=== PATIENT | female | born 1995 | race Caucasian/White ===

== ENCOUNTER 2018-04-08 08:20 | Emergency (ER) | payer BC, OTHER ==
[~2018-04-08] VITALS: Ht 177.8 cm; Wt 90.7 kg
--- OUTSIDE RECORDS SUMMARY | 2018-04-08 08:24 | XMS REPORT | CCD ---
Author Author ADRIANO MALONE Organization Unknown Address [address] [place], [place] [id number] Care Team Providers Care Belly Dancer Name Role Phone JENNIFER KUHN, SJ Christian Attphys SJ RODRIGUEZ MD Prisuethan Vital Signs Unknown or Not Available. Allergies Unknown or Not Available. Procedures Procedure Code Procedure Type Date HAND;MINIMUM 3VWS [id number] SNOMED CT 05/08/2015 History of Immunizations Immunization Code Date Hep B, adolescent or pediatric 08 1997 Problems Unknown or Not Available. Results Unknown or Not Available. Active Medications Unknown or Not Available. Medications Administered During Visit Unknown or Not Available. Encounters Encounter Diagnosis Diagnosis Code Start Date Contusion of hand [id number] 05/08/2015 Social History Smoking Status Code Start Date End Date Never smoker [id number] Patient Decision Aids Unknown or Not Available. Discharge Instructions You were admitted to [facility] on 05/08/2015 17:39 with a principal diagnosis of Contusion of left hand, initial encounter You were discharged from [facility] on 05/08/2015 19:06 Should you have any questions prior to discharge, please contact a member of your healthcare team. If you have left the hospital and have any questions, please contact your primary care physician. Chief Complaint and Reason For Visit Chief Complaint Date of Onset HAND INJURY Function Status Unknown or Not Available. Plan of Care Unknown or Not Available. Referral/Transition of Care Unknown or Not Available.
--- OUTSIDE RECORDS SUMMARY | 2018-04-08 08:25 | XMS REPORT ---
Author Author Landy Lepe [facility] Address [address] [place], [place] [id number] Care Team Providers Care Security Supervisor Name Role Phone Landy Lepe PCP Landy Lepe PreferredProvider Allergies and Adverse Reactions Name Reaction Notes NO KNOWN DRUG ALLERGIES Plan of Treatment Not available. Medications Name Start Date Expiration Date SIG Comments Medrol (Emilio) 4 mg oral tablets,dose pack 03/15/2014 03/30/2014 take as directed azithromycin 500 mg oral tablet 03/15/2014 03/22/2014 take 1 tablet (500 mg ) by oral route once daily x 7 days ProAir HFA 90 mcg/actuation inhalation HFA aerosol inhaler 03/15/20142014 inhale 2 puffs by inhalation route every 4 hours as needed for 7 days Zithromax 250 mg oral tablet 07/20/2016 07/25/2016 take 2 tablets (500 mg) by oral route once daily for 1 day then 1 tablet (250 mg) by oral route once daily for 4 days Zithromax Z-Emilio 250 mg oral tablet 10/24/2016 10/29/2016 take 2 tablets (500 mg ) by oral route once daily for 1 day then 1 tablet (250 mg) by oral route once daily for 4 days doxycycline hyclate 100 mg oral tablet 12/09/2016 01/06/2017 take 1 tablet ( 100 mg) by oral route every 12 hours for 14 days promethazine 25 mg oral tablet 06/06/2017 06/11/2017 take 1 tablet (25 mg) by oral route every 6 hours as needed for 5 days Vibramycin 100 mg oral capsule 11/09/2017 11/19/2017 1 capsule am and pm for 10 days Discontinued Name Start Date Discontinued Date SIG Comments amoxicillin 875 mg oral tablet 03/14/2017 05/08/2017 take 1 tablet (875 mg) by oral route every 12 hours for 10 days amoxicillin 875 mg oral tablet 05/08/2017 11/07/2017 take 1 tablet (875 mg) by oral route every 12 hours for 10 days Problem List Description Status Onset *No known medical problems Active Vital Signs Date Time BP-Sys(mm[Hg] BP-Briseida(mm[Hg]) HR(bpm) RR(rpm) Temp WT HT HC BMI BSA BMI Percentile O2 Sat(%) 11/07/2017 2:36:00 PM 128 mmHg 78 mmHg 92 bpm 16 rpm 98.8 F 189.375 lbs 71 in 26.4122 kg/m 2.0744 m 99 % 05/08/2017 1:17:00 PM 102 mmHg 60 mmHg 91 bpm 18 rpm 96.8 F 198.125 lbs 71 in 27.63 kg/m2 2.12 m2 98 % 03/14/2017 11:16:00 AM 112 mmHg 68 mmHg 104 bpm 18 rpm 97.4 F 205 lbs 71 in 28.5914 kg/m 2.1583 m 0 % 97 % 12/09/2016 3:02:00 PM 124 mmHg 64 mmHg 84 bpm 18 rpm 96.9 F 198.375 lbs 71 in 27.67 kg/m2 2.12 m2 0 % 98 % 10/24/2016 2:45:00 PM 122 mmHg 66 mmHg 98 bpm 18 rpm 99.2 F 209.375 lbs 71 in 29.2016 kg/m 2.1812 m 92 % 99 % 07/20/2016 4:09:00 PM 120 mmHg 80 mmHg 86 bpm 18 rpm 97.4 F 203.437 lbs 71 in 28.37 kg/m2 2.15 m2 90.8 % 99 % 03/15/2014 12:32:00 PM 122 mmHg 62 mmHg 81 bpm 18 rpm 99.3 F 160 lbs 71 in 22.3152 kg/m 1.9067 m 65.3 % 99 % Social History Name Description Comments denies alcohol use Tobacco Never smoker Caffeine Current every day History of Procedures Date Ordered Description Order Status 07/20/2016 12:00 AM THER/PROPH/DIAG INJ SC/IM Reviewed 07/20/2016 12:00 AM Decadron 4mg Injection Reviewed 07/20/2016 12:00 AM Depo-Medrol 40mg Injection Reviewed 12/09/2016 12:00 AM Tick Panel Reviewed 12/09/2016 12:00 AM COMPLETE CBC W/AUTO DIFF WBC Returned 12/09/2016 12:00 AM COMPREHEN METABOLIC PANEL Returned 12/09/2016 12:00 AM C-REACTIVE PROTEIN Returned 12/09/2016 12:00 AM X-RAY EXAM OF SHOULDER Reviewed 10/24/2016 12:00 AM THER/PROPH/DIAG INJ SC/IM Reviewed 10/24/2016 12:00 AM Decadron 4mg Injection Reviewed 10/24/2016 12:00 AM Depo-Medrol 40mg Injection Reviewed 03/14/2017 12:00 AM THER/PROPH/DIAG INJ SC/IM Reviewed 03/14/2017 12:00 AM Decadron 4mg Injection Reviewed 03/14/2017 12:00 AM Depo-Medrol 40mg Injection Reviewed 11/07/2017 12:00 AM COMPLETE CBC W/AUTO DIFF WBC Reviewed 11/07/2017 12:00 AM COMPREHEN METABOLIC PANEL Reviewed 11/07/2017 12:00 AM Tick Panel Reviewed Results Summary Date and Description Results 12/09/2016 3:37 PM Lyme IgG/IgM Ab 1.16 Lyme Disease Ab, Quant,IgM <0.80 IgG P93 Ab. Absent IgG P66 Ab. Present IgG P58 Ab. Absent IgG P45 Ab. Absent IgG P41 Ab. Present IgG P39 Ab. Absent IgG P30 Ab. Absent IgG P28 Ab. Absent IgG P23 Ab. Absent IgG P18 Ab. Absent Lyme IgG WB Interp. Negative IgM P41 Ab. Absent IgM P39 Ab. Absent IgM P23 Ab. Absent Lyme IgM WB Interp. Negative RMSF, IgG, EIA Negative [facility] Spotted Fever,IgM 0.50 E. chaffeensis (HME) IgGTiter Negative titerE. chaffeensis (HME) IgMTiter Negative 11/07/2017 3:00 PM WBC 9.3 RBC 4.44 HGB 14.2 HCT 40.9 MCV 92 MCH 32.0 MCHC 34.7 RDW SD 42 RDW CV 12.4 MPV 9.8 PLT 310 NRBC# 0.00 NRBC% 0.0 %NEUT 70.8 % LYMP 19.7 %MONO 7.5 %EOS 1.4 %BASO 0.4 #NEUT 6.59 #LYMP 1.84 #MONO 0.70 #EOS 0.13 #BASO 0.04 MANUAL DIFF NOT IND GLUCOSE 104 SODIUM 138 POTASSIUM 4.0 CHLORIDE 105 CO2 24 BUN 9 CREATININE 0.8 SGOT/AST 16 SGPT/ALT 13 ALK PHOS 64 TOTAL PROTEIN 7.1 ALBUMIN 4.4 TOTAL BILI 0.5 CALCIUM 9.8 AGE 22 GFR NonAA 91 GFR AA 110 eGFR 91 eGFR AA* >60 Lyme IgG/IgM Ab <0.91 Lyme Disease Ab, Quant, IgM <0.80 RMSF, IgG, EIA Negative [facility] Spotted Fever,IgM 0.44 E. chaffeensis (HME) IgGTiter Negative E. chaffeensis (HME) IgMTiter Negative History Of Immunizations Not available. 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 2:48PM Allergic asthma without complication Oct 24 2016 2:48PM Enlarged lymph nodes in armpit Dec 09 2016 3:04PM Headache Dec 09 2016 3:04PM Bitten or stung by nonvenomous insect and other nonvenomous arthropods, initial encounter Dec 09 2016 3:04PM Cough Mar 14 2017 11:18AM Acute pharyngitis due to other specified organisms Mar 14 2017 11:18AM Acute pansinusitis, recurrence not specified Mar 14 2017 11:18AM Acute pharyngitis, unspecified etiology May 08 2017 1:20PM Herpangina May 08 2017 1:20PM Other fatigue Nov 07 2017 2:38PM History of Lyme disease Nov 07 2017 2:38PM Arthralgia, unspecified joint Nov 07 2017 2:38PM Diarrhea, unspecified type Nov 07 2017 2:38PM Payers Insurance Name Company Name Plan Name Plan Number Policy Number Policy Group Number Start Date [facility] [id number] N/A History of Encounters Visit Date Visit Type Provider 11/07/2017 Office visit 11/07/2017 Office visit Landy Lepe PHARMACEUTICAL BOTANIST 05/08/2017 Office visit Landy Jonna Lepe PHARMACEUTICAL BOTANIST 03/14/2017 Office visit Landy Lepe PHARMACEUTICAL BOTANIST 12/09/2016 Office visit Jean Rodriguez PA-C 10/24/2016 Office visit Landy Lepe PHARMACEUTICAL BOTANIST 07/20/2016 Office visit Landy Lepe PHARMACEUTICAL BOTANIST 03/15/2014 Office visit Nae Jimenez PHARMACEUTICAL BOTANIST
--- OUTSIDE RECORDS SUMMARY | 2018-04-08 08:25 | XMS REPORT ---
Author Author Jean Rodriguez [facility] Address [address] [place], [place] [address] Care Team Providers Care Community Health Advisor Name Role Phone Jean Rodriguez PCP Unavailable Landy Lepe PreferredProvider [phone] Allergies and Adverse Reactions Name Reaction Notes NO KNOWN DRUG ALLERGIES Plan of Treatment Planned Activity Comments Planned Date Planned Time Plan/Goal CBC W/ AUTO DIFF (RFLX MAN DIFF IF IND). 12/09/2016 12:00 AM CMP 12/09/2016 12:00 AM CRP 12/09/2016 12:00 AM SHOULDER MINIMUM 2 VIEWS 12/09/2016 12:00 AM Medications Active Name Start Date Estimated Completion Date SIG Comments doxycycline hyclate 100 mg oral tablet 12/09/2016 01/06/2017 take 1 tablet ( 100 mg) by oral route every 12 hours for 14 days Name Start Date Expiration Date SIG Comments [...] oral route once daily for 4 days Problem List Description Status Onset *No known medical problems Active Vital Signs Date Time BP-Sys(mm[Hg] BP-Briseida(mm[Hg]) HR(bpm) RR(rpm) Temp WT HT HC BMI BSA BMI Percentile O2 Sat(%) 12/09/2016 3:02:00 PM 124 mmHg 64 mmHg [...] 07/20/2016 12:00 AM Depo-Medrol 40mg Injection Reviewed 10/24/2016 12:00 AM THER/PROPH/DIAG INJ SC/IM Reviewed 10/24/2016 12:00 AM Decadron 4mg Injection Reviewed 10/24/2016 12:00 AM Depo-Medrol 40mg Injection Reviewed Results Summary Not available. History Of Immunizations Not available. History of [...] arthropods, initial encounter Dec 09 2016 3:04PM Payers Insurance Name Company Name Plan Name Plan Number Policy Number Policy Group Number [id number] N/A History of Encounters Visit Date Visit Type Provider 12/09/2016 Office visit Jean Rodriguez PA-C 10/24/2016 Office visit Landy Lepe APRN 07/20/2016 Office visit Landy Lepe APRN 03/15/2014 Office visit Nae Jimenez APRN
--- OUTSIDE RECORDS SUMMARY | 2018-04-08 08:25 | XMS REPORT ---
Author Author Landy Lepe [facility] Address [address] [place], [place] [id number] Care Team Providers Care Director International Name Role Phone Landy Lepe PCP Landy [...] Depo-Medrol 40mg Injection Reviewed 11/07/2017 12:00 AM Tick Panel Reviewed 11/07/2017 12:00 AM COMPLETE CBC W/AUTO DIFF WBC Reviewed 11/07/2017 12:00 AM COMPREHEN METABOLIC PANEL Reviewed Results Summary Date and Description Results [...] WB Interp. Negative RMSF, IgG, EIA Negative [facility] Spotted Fever,IgM 0.50 E. chaffeensis (HME) [...] Quant, IgM <0.80 RMSF, IgG, EIA Negative [facility] Spotted Fever,IgM 0.44 E. chaffeensis (HME) [...] Policy Number Policy Group Number Start Date [facility] [id number] N/A History of Encounters Visit Date Visit Type Provider 11/07/2017 Office visit 11/07/2017 Office visit Landy Lepe FARM MECHANIC 05/08/2017 Office visit Landy Jonna Lepe FARM MECHANIC 03/14/2017 Office visit Landy Lepe FARM MECHANIC 12/09/2016 Office visit Jean Rodriguez PA-C 10/24/2016 Office visit Landy Lepe FARM MECHANIC 07/20/2016 Office visit Landy Lepe FARM MECHANIC 03/15/2014 Office visit Nae Jimenez FARM MECHANIC
--- OUTSIDE RECORDS SUMMARY | 2018-04-08 08:25 | XMS REPORT ---
Author Author Landy Lepe [facility] Address [address] [place], [place] [phone] Care Team Providers Care Corporate Banking Officer Name Role Phone Landy Lepe PCP Landy Lepe PreferredProvider Allergies and Adverse Reactions Name Reaction Notes NO KNOWN DRUG ALLERGIES Plan of Treatment Planned Activity Comments Planned Date Planned Time Plan/Goal Injection, Subcutaneous/IM 03/14/2017 12:00 AM Medications Active Name Start Date Estimated Completion Date SIG Comments amoxicillin 875 mg oral tablet 03/14/2017 take 1 tablet (875 mg) by oral route every 12 hours for 10 days Name Start Date Expiration Date SIG [...] route every 12 hours for 14 days Problem List Description Status Onset *No known medical problems Active Vital Signs Date Time BP-Sys(mm[Hg] BP-Briseida(mm[Hg]) HR(bpm) RR(rpm) Temp WT HT HC BMI BSA BMI Percentile O2 Sat(%) 03/14/2017 11:16:00 AM 112 mmHg 68 mmHg 104 bpm 18 rpm 97.4 F 205 lbs 71 in 28.59 kg/m2 2.16 m2 0 % 97 % 12/09/2016 3:02:00 PM 124 mmHg 64 mmHg 84 bpm 18 rpm 96.9 F 198.375 lbs 71 in 27.6674 kg/m 2.1231 m 0 % 98 % 10/24/2016 2:45:00 PM 122 mmHg 66 mmHg 98 bpm 18 rpm 99.2 F 209.375 lbs 71 in 29.20 kg/m2 2.18 m2 92 % 99 % 07/20/2016 4:09:00 PM 120 mmHg 80 mmHg 86 bpm 18 rpm 97.4 F 203.437 lbs 71 in 28.3735 kg/m 2.15 m 90.8 % 99 % 03/15/2014 12:32:00 PM 122 mmHg 62 mmHg 81 bpm 18 rpm 99.3 F 160 lbs 71 in 22.32 kg/m2 1.91 m2 65.3 % 99 % Social History Name [...] AM Depo-Medrol 40mg Injection Reviewed Results Summary Date and Description Results [...] WB Interp. Negative RMSF, IgG, EIA Negative [facility] Spotted Fever,IgM 0.50 E. chaffeensis (HME) IgGTiter Negative titerE. chaffeensis (HME) IgMTiter Negative History Of Immunizations [...] recurrence not specified Mar 14 2017 11:18AM Payers Insurance Name Company Name Plan Name Plan Number Policy Number Policy Group Number Start Date [facility] [id number] N/A History of Encounters Visit Date Visit Type Provider 03/14/2017 Office visit Landy Lepe LIGHTING SPECIALIST 12/09/2016 Office visit Jean Rodriguez PA-C 10/24/2016 Office visit Landy Lepe LIGHTING SPECIALIST 07/20/2016 Office visit Landy Lepe LIGHTING SPECIALIST 03/15/2014 Office visit Nae Jimenez LIGHTING SPECIALIST
--- OUTSIDE RECORDS SUMMARY | 2018-04-08 08:25 | XMS REPORT ---
Author Author Jean Rodriguez [facility] Address [address] [place], [place] [phone] Care Team Providers Care Crew Leader Gluing Name Role Phone Jean Rodriguez PCP Unavailable ArlenevladlianetLandy PreferredProvider [phone] Allergies and Adverse Reactions Name Reaction Notes NO KNOWN DRUG ALLERGIES Plan of Treatment Not available. Medications Active Name Start Date Estimated Completion [...] Depo-Medrol 40mg Injection Reviewed 12/09/2016 12:00 AM COMPLETE CBC W/AUTO [...] Policy Number Policy Group Number [id number] N/A History of Encounters Visit Date Visit Type Provider 12/09/2016 Office visit Jean Rodriguez PA-C 10/24/2016 Office visit Landy Lepe APRN 07/20/2016 Office visit Landy Lepe APRN 03/15/2014 Office visit Nae Jimenez APRN
--- OUTSIDE RECORDS SUMMARY | 2018-04-08 08:26 | XMS REPORT ---
Author Author Landy Lepe [facility] Address [address] [place], [place] [phone] Care Team Providers Care Eye Care Professional Name Role Phone Landy Lepe PCP [phone] Landy Lepe PreferredProvider [phone] Allergies and Adverse Reactions Name Reaction Notes NO KNOWN DRUG ALLERGIES Plan of Treatment Planned Activity Comments Planned Date Planned Time Plan/Goal Injection, Subcutaneous/IM 07/20/2016 12:00 AM Medications Active Name Start Date Estimated Completion Date SIG Comments Zithromax 250 mg oral tablet 07/20/2016 07/25/2016 take 2 tablets (500 mg) by oral route once daily for 1 day then 1 tablet (250 mg) by oral route once daily for 4 days Name Start Date Expiration Date SIG [...] 4 hours as needed for 7 days Problem List Description Status Onset *No known medical problems Active Vital Signs Date Time BP-Sys(mm[Hg] BP-Briseida(mm[Hg]) HR(bpm) RR(rpm) Temp WT HT HC BMI BSA BMI Percentile O2 Sat(%) 07/20/2016 4:09:00 PM 120 mmHg 80 mmHg [...] Caffeine Current every day History of Procedures Not available. Results Summary Not available. History Of Immunizations [...] both eustachian tubes Jul 20 2016 4:13PM Payers Insurance Name Company Name Plan Name Plan Number Policy Number Policy Group Number Start Date [facility] [id number] N/A History of Encounters Visit Date Visit Type Provider 07/20/2016 Office visit Landy Lepe APRN 03/15/2014 Office visit Nae Jimenez APRN
--- OUTSIDE RECORDS SUMMARY | 2018-04-08 08:26 | XMS REPORT ---
Author Author Jean Rodriguez [facility] Address [address] [place], [place] [phone] Care Team Providers Care Equipment Services Associate Name Role Phone Jean Rodriguez PCP Unavailable ArlenevladLandy martinierine PreferredProvider [phone] Allergies and Adverse Reactions Name Reaction Notes NO KNOWN DRUG ALLERGIES Plan of Treatment Planned Activity Comments Planned Date Planned Time Plan/Goal SHOULDER MINIMUM 2 VIEWS 12/09/2016 12:00 AM [...] 10/24/2016 12:00 AM Depo-Medrol 40mg Injection Reviewed 12/09/2016 12:00 AM COMPLETE CBC W/AUTO DIFF WBC Returned 12/09/2016 12:00 AM COMPREHEN METABOLIC PANEL Returned 12/09/2016 12:00 AM C-REACTIVE PROTEIN Returned Results Summary Not available. History Of Immunizations [...] Policy Number Policy Group Number [facility] [id number] N/A History of Encounters Visit Date Visit Type Provider 12/09/2016 Office visit Jean Rodriguez PA-C 10/24/2016 Office visit Landy Lepe APRN 07/20/2016 Office visit Landy Lepe APRN 03/15/2014 Office visit Nae Jimenez APRN
--- OUTSIDE RECORDS SUMMARY | 2018-04-08 08:26 | XMS REPORT ---
Author Author Landy Lepe [facility] Address [address] [place], [place] [phone] Care Team Providers Care Business Division Chair Name Role Phone Landy Lepe PCP Landy Lepe PreferredProvider Allergies and Adverse Reactions Name Reaction Notes NO KNOWN DRUG ALLERGIES Plan of Treatment Not available. Medications Active Name Start Date Estimated Completion Date SIG Comments amoxicillin 875 mg oral tablet 05/08/2017 take 1 tablet (875 mg) by oral route every 12 hours for 10 days promethazine 25 mg oral tablet 06/06/2017 06/11/2017 take 1 tablet (25 mg) by oral route every 6 hours as needed for 5 days Name Start Date Expiration Date SIG [...] route every 12 hours for 14 days Discontinued Name Start Date Discontinued Date SIG Comments amoxicillin 875 mg oral tablet 03/14/2017 05/08/2017 take 1 tablet (875 mg) by oral route every 12 hours for 10 days Problem List Description Status Onset *No known medical problems Active Vital Signs Date Time BP-Sys(mm[Hg] BP-Briseida(mm[Hg]) HR(bpm) RR(rpm) Temp WT HT HC BMI BSA BMI Percentile O2 Sat(%) 05/08/2017 1:17:00 PM 102 mmHg 60 mmHg [...] 03/14/2017 12:00 AM Depo-Medrol 40mg Injection Reviewed Results [...] WB Interp. Negative RMSF, IgG, EIA Negative [facility] Spotted Fever,IgM 0.50 E. chaffeensis (HME) [...] 2017 1:20PM Herpangina May 08 2017 1:20PM Payers Insurance Name Company Name Plan Name Plan Number Policy Number Policy Group Number [facility] [id number] N/A History of Encounters Visit Date Visit Type Provider 05/08/2017 Office visit Landy Lepe APRN 03/14/2017 Office visit Landy Lepe APRN 12/09/2016 Office visit eJan Rodriguez PA-C 10/24/2016 Office visit Landy Lepe APRN 07/20/2016 Office visit Landy Lepe APRN 03/15/2014 Office visit Nae Jimenez APRN
--- OUTSIDE RECORDS SUMMARY | 2018-04-08 08:27 | XMS REPORT | Continuity of Care Document ---
Author Author [facility] Organization [facility] Address Unknown Phone Unavailable Allergies There is no data. Medications There is no data. Problems There is no data. Procedures There is no data. Results Test Result Range LymeAb(IgG/M)+HME(IgG/M)+RM... - 12/09/16 15:37 RMSF, IgG, EIA Negative Negative [facility] Spotted Fever, IgM 0.50 index 0.00-0.89 Lyme IgG/IgM Ab 1.16 ISR 0.00-0.90 Lyme Disease Ab, Quant, IgM <0.80 index 0.00-0.79 E. chaffeensis (HME) IgG Titer Negative Neg:<1:64 E. chaffeensis (HME) IgM Titer Negative Neg:<1:20 Lyme, Western Blot, Serum - 12/09/16 15:37 IgG P93 Ab. Absent IgG P66 Ab. Present IgG P58 Ab. Absent IgG P45 Ab. Absent IgG P41 Ab. Present IgG P39 Ab. Absent IgG P30 Ab. Absent IgG P28 Ab. Absent IgG P23 Ab. Absent IgG P18 Ab. Absent Lyme IgG WB Interp. Negative IgM P41 Ab. Absent IgM P39 Ab. Absent IgM P23 Ab. Absent Lyme IgM WB Interp. Negative Encounters ACCT No. Visit Date/Time Discharge Status Pt. Type Provider Facility Loc./Unit Complaint [id number] 05/08/2017 14:14:45 05/08/2017 23:59:59 CLS Outpatient Cristopher Lepe [id number] 03/14/2017 12:06:58 03/14/2017 23:59:59 CLS Outpatient Cristopher Lepe [id number] 12/09/2016 15:55:58 12/09/2016 23:59:59 CLS Outpatient Jean Rodriguez [id number] 10/24/2016 15:25:46 10/24/2016 23:59:59 CLS Outpatient Cristopher Lepe [id number] 07/20/2016 17:04:40 07/20/2016 23:59:59 CLS Outpatient Cristopher Lepe [id number] 03/15/2014 13:25:56 03/15/2014 23:59:59 CLS Outpatient Nae Jimenez [id number] 12/16/2016 13:06:00 Document Registration
--- OUTSIDE RECORDS SUMMARY | 2018-04-08 08:27 | XMS REPORT ---
Author Author Landy Lepe [facility] Address [address] [place], [place] [phone] Care Team Providers Care Photograph Inspector Name Role Phone Landy Lepe PCP Lanyd Lepe PreferredProvider Allergies and Adverse Reactions Name [...] 6 hours as needed for 5 days Discontinued Name Start Date Discontinued Date [...] rpm 96.8 F 198.125 lbs 71 in 27.6325 kg/m 2.1218 m 98 % 03/14/2017 11:16:00 AM 112 mmHg [...] WB Interp. Negative RMSF, IgG, EIA Negative [facility] Spotted Fever,IgM 0.50 E. chaffeensis (HME) [...] Policy Number Policy Group Number [id number] N/A History of Encounters Visit Date Visit Type Provider 05/08/2017 Office visit Landy Lepe APRN 03/14/2017 Office visit Landy Lepe APRN 12/09/2016 Office visit Jean Rodriguez PA-C 10/24/2016 Office visit Landy Lepe APRN 07/20/2016 Office visit Landy Lepe APRN 03/15/2014 Office visit Nae Jimenez APRN
[2018-04-08] MEDS ORDERED: NS IV 1000 ML 1,000 ML IV ONE (09:01)
--- NOTE | 2018-04-08 09:06 | ED Abdominal Pain ---
General Chief Complaint: Abdominal/GI Problems Stated Complaint: BACK PAIN Nursing Triage Note: pt abmulated to room 10 with complaint of left sided back pain that radiates to her abd. pt states she woke up two hours ago in severe pain. Sepsis Screen: No Definite Risk Source of Information: Patient Exam Limitations: No Limitations History of Present Illness Date Seen by Provider: Apr 08, 2018 Time Seen by Provider: 08:57 Initial Comments This 23-year-old young lady presents to emergency room with fairly sudden onset of left lower back, flank, and left lower quadrant pain that woke her around 07: 00. This was associated with vomiting. Pain has been constant since then. She denies or sexual activity. She denies any urinary changes. She has no history of renal stones. Allergies and Home Medications Allergies Coded Allergies: No Known Drug Allergies (Unverified , 04/08/18) Home Medications No Active Prescriptions or Reported Meds Patient Home Medication List Home Medication List Reviewed: Yes Review of Systems Review of Systems Constitutional: no symptoms reported EENTM: No Symptoms Reported Respiratory: No Symptoms Reported Cardiovascular: No Symptoms Reported Gastrointestinal: See HPI Genitourinary: No Symptoms Reported Musculoskeletal: no symptoms reported Skin: no symptoms reported Psychiatric/Neurological: No Symptoms Reported Endocrine: No Symptoms Reported Hematologic/Lymphatic: No Symptoms Reported Past Sppqidb-Lezprm-Xicqll Hx Past Med/Social Hx: Reviewed and Corrections made Patient Social History Alcohol Use: Denies Use Recreational Drug Use: No Smoking Status: Never a Smoker Recent Foreign Travel: No Contact w/Someone Who Travel: No Recent Infectious Disease Expo: No Recent Hopitalizations: No Immunizations Up To Date Tetanus Booster (TDap): Unknown PED Vaccines UTD: Yes Seasonal Allergies Seasonal Allergies: No Past Medical History Surgeries: No Respiratory: No Cardiac: No Neurological: No : No Reproductive Disorders: No Genitourinary: No Gastrointestinal: No Musculoskeletal: No Endocrine: No HEENT: No Cancer: No Psychosocial: No Integumentary: No Blood Disorders: No Physical Exam Vital Signs Vital Signs - First Documented 04/08/18 08:30 Temp 96.5 Pulse 77 Resp 20 B/P (MAP) 120/86 (97) Pulse Ox 98 O2 Delivery Room Air Capillary Refill : Less Than 3 Seconds Height/Weight/BMI Height: 5'10.00" Weight: 200lbs. oz. 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, no motor/sensory deficits, alert, normal mood/affect, oriented x 3 Skin: normal color, warm/dry Progress/Results/Core Measures Results/Orders Lab Results Laboratory Tests Test 04/08/18 08:37 04/08/18 09:06 Range/Units White Blood Count 7.6 4.3-11.0 10^3/uL Red Blood Count 4.38 4.35-5.85 10^6/uL Hemoglobin 13.8 11.5-16.0 G/DL Hematocrit 39 35-52 % Mean Corpuscular Volume 89 80-99 FL Mean Corpuscular Hemoglobin 32 25-34 PG Mean Corpuscular Hemoglobin Concent 35 32-36 G/DL Red Cell Distribution Width 12.7 10.0-14.5 % Platelet Count 326 130-400 10^3/uL Mean Platelet Volume 9.3 7.4-10.4 FL Neutrophils (%) (Auto) 61 42-75 % Lymphocytes (%) (Auto) 30 12-44 % Monocytes (%) (Auto) 8 0-12 % Eosinophils (%) (Auto) 0 0-10 % Basophils (%) (Auto) 1 0-10 % Neutrophils # (Auto) 4.6 1.8-7.8 X 10^3 Lymphocytes # (Auto) 2.3 1.0-4.0 X 10^3 Monocytes # (Auto) 0.6 0.0-1.0 X 10^3 Eosinophils # (Auto) 0.0 0.0-0.3 10^3/uL Basophils # (Auto) 0.0 0.0-0.1 10^3/uL Sodium Level 141 135-145 MMOL/L Potassium Level 3.3 L 3.6-5.0 MMOL/L Chloride Level 107 98-107 MMOL/L Carbon Dioxide Level 21 21-32 MMOL/L Anion Gap 13 5-14 MMOL/L Blood Urea Nitrogen 10 7-18 MG/DL Creatinine 1.07 0.60-1.30 MG/DL Estimat Glomerular Filtration Rate > 60 BUN/Creatinine Ratio 9 Glucose Level 104 70-105 MG/DL Calcium Level 9.4 8.5-10.1 MG/DL Corrected Calcium 9.0 8.5-10.1 MG/DL Total Bilirubin 0.6 0.1-1.0 MG/DL Aspartate Amino Transf (AST/SGOT) 17 5-34 U/L Alanine Aminotransferase (ALT/SGPT) 13 0-55 U/L Alkaline Phosphatase 58 40-136 U/L Total Protein 7.5 6.4-8.2 GM/DL Albumin 4.5 3.2-4.5 GM/DL Lipase 27 8-78 U/L Serum Test, Qualitative NEGATIVE NEGATIVE Urine Color YELLOW Urine Clarity CLEAR Urine pH 6 5-9 Urine Specific [place] 1.025 H 1.016-1.022 Urine Protein 2+ H NEGATIVE Urine Glucose (UA) NEGATIVE NEGATIVE Urine Ketones NEGATIVE NEGATIVE Urine Nitrite NEGATIVE NEGATIVE Urine Bilirubin NEGATIVE NEGATIVE Urine Urobilinogen 1 NORMAL MG/DL Urine Leukocyte Esterase 2+ H NEGATIVE Urine RBC (Auto) 4+ H NEGATIVE Urine RBC 25-50 H /HPF Urine WBC 2-5 /HPF Urine Squamous Epithelial Cells 5-10 /HPF Urine Crystals PRESENT H /LPF Urine Amorphous Sediment FEW [place] URATES H /LPF Urine Bacteria FEW H /HPF Urine Casts NONE /LPF Urine Mucus SMALL H /LPF Urine Culture Indicated YES My Orders Orders - LETTY OLIVIER MD Ua Culture If Indicated (04/08/18 08:57) Cbc With Automated Diff (04/08/18 09:01) Comprehensive Metabolic Panel (04/08/18 09:01) Hcg,Qualitative Serum (04/08/18 09:01) Lipase (04/08/18 09:01) Saline Lock/Iv-Start (04/08/18 09:01) Ns Iv 1000 Ml (Sodium Chloride 0.9%) (04/08/18 09:01) Ketorolac Injection (Toradol Injection) (04/08/18 09:15) Ondansetron Injection (Zofran Injectio (04/08/18 09:15) Urine Culture (04/08/18 09:06) Fentanyl Injection (Sublimaze Injection (04/08/18 09:45) Ct Abd/Pelvis Wo(Kidney Stone) (04/08/18 09:31) Oxycodone/Apap 5/325mg Tablet (Percocet (04/08/18 10:15) Abdomen/Kub 1view (04/08/18 10:29) Medications Given in ED Current Medications Medications Dose Ordered Sig/Franki Route Start Time Stop Time Status Last Admin Dose Admin Fentanyl Citrate 75 mcg ONCE ONCE IVP 04/08/18 09:45 04/08/18 09:46 DC 04/08/18 09:36 75 MCG Ketorolac Tromethamine 15 mg ONCE ONCE IVP 04/08/18 09:15 04/08/18 09:16 DC 04/08/18 09:16 15 MG Ondansetron HCl 8 mg ONCE ONCE IVP 04/08/18 09:15 04/08/18 09:16 DC 04/08/18 09:16 8 MG Oxycodone/ Acetaminophen 1 tab ONCE ONCE PO 04/08/18 10:15 04/08/18 10:16 DC 04/08/18 10:23 1 TAB Sodium Chloride 1,000 ml @ 0 mls/hr Q0M ONCE IV 04/08/18 09:01 04/08/18 09:04 DC 04/08/18 09:16 1,000 MLS/HR Vital Signs/I&O 04/08/18 08:30 Temp 96.5 Pulse 77 Resp 20 B/P (MAP) 120/86 (97) Pulse Ox 98 O2 Delivery Room Air Blood Pressure Mean: 97 Progress Progress Note : Time: 09:06 Progress Note Patient seen and examined. Labs and UA pending. Toradol and Zofran ordered along with IV fluids. Departure Impression Primary Impression: Left ureteral calculus Additional Impressions: Hydronephrosis, left Nausea and vomiting Qualified Codes: R11.2 - Nausea with vomiting, unspecified Disposition: 01 HOME, SELF-CARE Condition: Improved Departure-Patient Inst. Decision time for Depature: 10:33 Referrals: NO,LOCAL PHYSICIAN (PCP/Family) Primary Care Physician Patient Instructions: Kidney Stones in Adults Add. Discharge Instructions: Drink plenty of clear liquids. Use Zofran (ondansetron) as prescribed for nausea and vomiting. You may take ibuprofen up to 600 mg every 6 hours as needed for pain. Add Percocet as prescribed for pain not controlled by ibuprofen. Strain your urine and bring any stones collected to your follow-up appointment. Follow-up with your primary care provider, [facility], or a urologist of choice as soon as possible. Return to the emergency room if you have worsening symptoms. There was also an incidental abnormality of the ovaries noted on your CT scan. This should be followed with an outpatient ultrasound. Please address this with your provider in your follow-up appointment. Use your antibiotics as prescribed to prevent infection related to this kidney stone. All discharge instructions reviewed with patient and/or family. Voiced understanding. Scripts Cephalexin (Keflex) 500 Mg Capsule 500 MG PO BID, #10 CAP Prov: LETTY OLIVIER MD 04/08/18 Ondansetron (Ondansetron Odt) 4 Mg Tab.rapdis 4 MG SL Q4H PRN for NAUSEA/VOMITING, #10 TAB Prov: LETTY OLIVIER MD 04/08/18 Oxycodone HCl/Acetaminophen (Percocet 5-325 mg Tablet) 1 Each Tablet 1 EACH PO Q4H PRN for PAIN-MODERATE MDD 6, #10 TAB Prov: LETTY OLIVIER MD 04/08/18 Copy Copies To 1: PAUL KEEN MD, JOSHUA T MD Apr 08, 2018 09:06
[2018-04-08 09:10] LABS: BASOPHILS % (AUTO) 1 % (0-10); EOSINOPHILS % (AUTO) 0 % (0-10); HEMATOCRIT 39 % (35-52); HEMOGLOBIN 13.8 G/DL (11.5-16.0); LYMPHOCYTES # (AUTO) 2.3 X 10^3 (1.0-4.0); LYMPHOCYTES % (AUTO) 30 % (12-44); MEAN CORPUSCULAR HEMOGLOBIN 32 PG (25-34); MEAN CORPUSCULAR HGB CONC 35 G/DL (32-36); MEAN CORPUSCULAR VOLUME 89 FL (80-99); MEAN PLATELET VOLUME 9.3 FL (7.4-10.4); MONOCYTES # (AUTO) 0.6 X 10^3 (0.0-1.0); MONOCYTES % (AUTO) 8 % (0-12); NEUTROPHILS # (AUTO) 4.6 X 10^3 (1.8-7.8); NEUTROPHILS % (AUTO) 61 % (42-75); PLATELET COUNT 326 10^3/uL (130-400); RED BLOOD COUNT 4.38 10^6/uL (4.35-5.85); RED CELL DISTRIBUTION WIDTH 12.7 % (10.0-14.5); WHITE BLOOD COUNT 7.6 10^3/uL (4.3-11.0)
[2018-04-08 09:14] LABS: BILIRUBIN,URINE NEGATIVE (NEGATIVE); CLARITY,URINE CLEAR; COLOR,URINE YELLOW; GLUCOSE, URINE (UA) NEGATIVE (NEGATIVE); KETONES,URINE NEGATIVE (NEGATIVE); LEUKOCYTE ESTERASE ,URINE 2+ (NEGATIVE); NITRITE,URINE NEGATIVE (NEGATIVE); PH,URINE 6 (5-9); PROTEIN,URINE 2+ (NEGATIVE); UROBILINOGEN,URINE 1 MG/DL (NORMAL)
[2018-04-08] MEDS ORDERED: KETOROLAC 30 MG/ML VIAL IVP ONE (09:15)
[2018-04-08] MEDS ORDERED: ONDANSETRON 4 MG/2 ML (SDV) Z0FRAN IVP ONE (09:15)
[2018-04-08 09:24] LABS: ALANINE AMINOTRANSFERASE 13 U/L (0-55); ALBUMIN 4.5 GM/DL (3.2-4.5); ALKALINE PHOSPHATASE 58 U/L (40-136); BILIRUBIN,TOTAL 0.6 MG/DL (0.1-1.0); BUN/CREATININE RATIO 9; CALCIUM 9.4 MG/DL (8.5-10.1); CARBON DIOXIDE 21 MMOL/L (21-32); CHLORIDE 107 MMOL/L (98-107); CREATININE SERUM 1.07 MG/DL (0.60-1.30); GFR ESTIMATED > 60; GLUCOSE 104 MG/DL (70-105); LIPASE 27 U/L (8-78); POTASSIUM 3.3 MMOL/L (3.6-5.0); SODIUM 141 MMOL/L (135-145); TOTAL PROTEIN 7.5 GM/DL (6.4-8.2)
[2018-04-08 09:25] LABS: BACTERIA,URINE FEW /HPF; RBC,URINE 25-50 /HPF
[2018-04-08 09:26] LABS: AMORPHOUS SEDIMENT,UR FEW AMOR URATES /LPF
[2018-04-08] MEDS ORDERED: fentaNYL INJECTION 100 MCG/2 ML AMP IVP ONE (09:45)
[2018-04-08] MEDS ORDERED: oxyCODONE/APAP 5/325MG (PERCOCET 5) TABLET PO ONE (10:15)
--- NOTE | 2018-04-08 10:17 | Diagnostic Imaging Report ---
PROCEDURE: CT urinary tract, rule out kidney stone. TECHNIQUE: Multiple contiguous axial images were obtained through the abdomen and pelvis without the use of intravenous contrast. INDICATION: Pain radiating into the abdomen, left-sided back pain, severe pain in the last 2 hours. EXAMINATION: CT abdomen pelvis without contrast 04/08/2018. COMPARISON: None. FINDINGS: Lung bases unremarkable. In the abdomen and the pelvis there is prominence of the left ureter along its entire course. In the distal ureter proximal to the UVJ there is a hyperdensity which measures approximately 5 mm in size consistent with an obstructive stone. Secondary mild hydronephrosis is noted. Mild fat stranding about the left kidney is seen. Punctate stones suspected nonobstructive in nature in the left kidney as well. Right kidney is unremarkable. No ureteral stones on the right. There are cystic changes in the adnexa bilaterally. Left ovary more pronounced on the left with likely the left ovary diffusely heterogeneous in nature containing hyperdensities. These could represent calcifications and are better evaluated sonographically on a nonemergent basis. Free fluid in the pelvis is noted likely physiologic or due to recently ruptured cyst. Appendix unremarkable. No inflammation seen about the remaining bowel loops. Remaining abdominal viscera limited due to lack of contrast but no acute abnormality appreciated. The osseous structures demonstrate no acute findings. There is a tiny punctate 1-2 mm hyperdensity in the left hemipelvis possibly within the urinary bladder recently passed stone versus a nonspecific calcification in the pelvis and of no significance. IMPRESSION: 1. 5 mm stone in distal left ureter proximal to the UVJ is causing secondary left hydroureteronephrosis and diffuse secondary fat stranding. Punctate nonobstructive stone left kidney also noted. 2. Minimal free fluid in pelvis most likely physiologic. Findings in the ovaries nonspecific left worse than right likely due peripherally calcified lesions dermoid not excluded. Sonographic evaluation non emergently unless there is pelvic pain would be recommended. Dictated by: Dictated on workstation # [id number]
[2018-04-08] MEDS ORDERED: ONDA4TAB11 SL (10:38)
[2018-04-08] MEDS ORDERED: CEPH-507 PO (10:38)
[2018-04-08] MEDS ORDERED: OXYC1TAB87 PO (10:38)
[2018-04-08 11:00] VITALS: BP 120/86
--- NOTE | 2018-04-08 11:35 | Diagnostic Imaging Report ---
INDICATION: Left flank pain. No history of stones. EXAMINATION: Abdomen dated 04/08/2018 FINDINGS: Mild scoliotic deformity of the spine is noted. There is a nonobstructive bowel gas pattern with air and stool throughout the colon to the rectosigmoid. There is no free air or dilated loops of bowel. The previously described hyperdensities noted about the expected course of the left distal ureter is noted. This was likely a stone is noted on the recent CT. The smaller density towards left of midline in the lower pelvis not appreciated given small size. IMPRESSION: 1. Small density in the left hemipelvis corresponding to calcification described on prior CT. Nonobstructive bowel gas pattern. Dictated by: Dictated on workstation # [id number]
== END 2018-04-08 11:00 | disposition home or self-care (01) ==
LOC: ER 08:22
DX: N13.2 Hydronephrosis with renal and ureteral calculous obstruction (principal)
CPT/HCPCS: 36415; 74018; 74176; 80053; 81000; 83690; 84703; 85025; 87088